=== PATIENT | female | born 2000 | race Two or more races ===

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

== ENCOUNTER 2021-02-17 02:21 | Emergency (ER) | payer MEDICAID ==
[~2021-02-17] VITALS: Ht 170.2 cm; Wt 80.7 kg
[2021-02-17 04:09] LABS: Urine Bacteria NONE SEEN /hpf (None Seen); Urine Blood Negative /uL (Negative); Urine Mucus FEW (None Seen); Urine WBC 12 /hpf (0 - 5)
[2021-02-17 05:48] LABS: Basophils # (auto) 0 10 ^3/uL (0-0.2); Basophils % (auto) 0.2 % (0.0-2.0); Eosinophils # (auto) 0.2 10 ^3/uL (0-0.8); Eosinophils % (auto) 1.3 % (0.0-7.0); Hematocrit 37.3 % (36.0-46.0); Hemoglobin 13.3 g/dL (12.2-16.2); Lymphocytes # (auto) 2.5 10 ^3/uL (0.4-5.4); Lymphocytes % (auto) 19.6 % (10.0-50.0); Mean Corpuscular Hgb Conc. 35.6 g/dL (32.0-36.0); Mean Corpuscular Volume 89.8 fL (80.0-100.0); Monocytes # (auto) 0.6 10 ^3/uL (0-1.3); Monocytes % (auto) 5.1 % (0.0-12.0); Neutrophils # (auto) 9.3 10 ^3/uL (1.6-8.6); Neutrophils % (auto) 73.8 % (37.0-80.0); Nucleated Red Blood Cells % 0.1 %; Red Blood Cells 4.15 10^6/uL (4.0-5.20); Red Cell Distribution Width 12.9 % (11.8-14.3); White Blood Cell 12.7 10^3/uL (4.4-10.8)
[2021-02-17 05:57] LABS: INR 1.02 (0.9-1.15)
[2021-02-17 06:38] LABS: Albumin 3.7 g/dL (3.4-5.0); BUN/Creatinine Ratio 11.8; Calcium 8.6 mg/dL (8.5-10.1); Potassium 3.6 mmol/L (3.5-5.1)
[2021-02-17 06:44] LABS: Bilirubin, Total 0.4 mg/dL (0.2-1.0)
[2021-02-17 06:48] VITALS: BP 124/77
== END 2021-02-17 07:35 | disposition home or self-care (01) ==
LOC: ER 02:22
DX: O20.0 Threatened abortion (principal); O23.41 Unspecified infection of urinary tract in pregnancy, first trimester; Z3A.12 12 weeks gestation of pregnancy
CPT/HCPCS: 36415; 76801; 80053; 81001; 84702; 85025; 85610

== ENCOUNTER 2021-07-09 20:06 | Observation (INO) | payer MEDICAID ==
[2021-07-09] MEDS ORDERED: PREN-96 OR (21:16)
== END 2021-07-09 21:37 | disposition home or self-care (01) ==
LOC: LDRP 20:06
PROVIDERS: ADMIT Obstetrics & Gynecology; ATTEND Obstetrics & Gynecology
DX: O42.913 Preterm premature rupture of membranes, unspecified as to length of time between rupture and onset of labor, third trimester (principal); O62.9 Abnormality of forces of labor, unspecified; W19.XXXA Unspecified fall, initial encounter; Z3A.32 32 weeks gestation of pregnancy; Y92.89 Other specified places as the place of occurrence of the external cause; Y93.89 Activity, other specified; Y99.8 Other external cause status
CPT/HCPCS: 59025; 81002; 94760; G0378; G0379

== ENCOUNTER 2021-07-10 05:34 | Inpatient (IN) | payer MEDICAID ==
[~2021-07-10] VITALS: Ht 170.2 cm; Wt 88.5 kg
[~2021-07-10 05:34] MED LIST: PREN-96 OR
[2021-07-10] MEDS ORDERED: BETAMETHASONE ACET (30mg/5ml) 5ml Vial 6mg/ml IM ONE (05:45)
[2021-07-10] MEDS ORDERED: AMPICILLIN SOD 2GM INJ 2 GM in SODIUM CHL 0.9% 100 ML IV ONE (05:45)
[2021-07-10] MEDS ORDERED: LACTATED RINGER'S 1,000 ML IV SCH ×2 (05:45→07:45)
[2021-07-10] MEDS ORDERED: MAGNESIUM SULFATE 100 ML IV ONE ×2 (06:00→06:12)
[2021-07-10] MEDS ORDERED: MAGNESIUM SULFATE 40MG/ML 1,000 ML IV SCH (06:00)
[2021-07-10] MEDS ORDERED: AMPICILLIN SOD 1 GM VL ONE (06:03)
[2021-07-10] MEDS ORDERED: BETAMETHASONE ACET (30mg/5ml) 5ml Vial 6mg/ml ONE (06:03)
[2021-07-10] MEDS ORDERED: MAGNESIUM SULFATE 40MG/ML 1,000 ML IV ONE (06:12)
[2021-07-10] MEDS ORDERED: TERBUTALINE SULFATE 1 MG/ML 1ML VIAL SC ONE (06:22)
[2021-07-10] MEDS: TERBUTALINE SULFATE 1 MG/ML 1ML VIAL SC SCH ×2 (06:29→08:02)
[2021-07-10 06:31] LABS: Basophils # (auto) 0 10 ^3/uL (0-0.2); Basophils % (auto) 0.1 % (0.0-2.0); Eosinophils # (auto) 0.1 10 ^3/uL (0-0.8); Eosinophils % (auto) 0.6 % (0.0-7.0); Hematocrit 35.2 % (36.0-46.0); Hemoglobin 11.9 g/dL (12.2-16.2); Lymphocytes # (auto) 1.7 10 ^3/uL (0.4-5.4); Lymphocytes % (auto) 12.2 % (10.0-50.0); Mean Corpuscular Hemoglobin 30.4 pg (28.0-32.0); Mean Corpuscular Hgb Conc. 33.7 g/dL (32.0-36.0); Mean Corpuscular Volume 90.3 fL (80.0-100.0); Monocytes # (auto) 1.2 10 ^3/uL (0-1.3); Monocytes % (auto) 8.9 % (0.0-12.0); Neutrophils # (auto) 10.6 10 ^3/uL (1.6-8.6); Neutrophils % (auto) 78.2 % (37.0-80.0); Red Cell Distribution Width 12.8 % (11.8-14.3); White Blood Cell 13.6 10^3/uL (4.4-10.8)
[2021-07-10 06:49] LABS: Albumin 2.9 g/dL (3.4-5.0); Calcium 8.5 mg/dL (8.5-10.1); Potassium 3.7 mmol/L (3.5-5.1)
[2021-07-10 06:53] LABS: BUN/Creatinine Ratio 13.6; Bilirubin, Total 0.6 mg/dL (0.2-1.0); INR 0.95 (0.9-1.15); Partial Thromboplastin Time 26.6 sec (23.6-33.0)
[2021-07-10 08:36] LABS: Alcohol, Urine < 3.0 mg/dL (0-10); Amphetamine Screen, Urine NEGATIVE (NEGATIVE); Barbiturate Scree,Urine NEGATIVE (NEGATIVE); Benzodiazephine Screen, Urine NEGATIVE (NEGATIVE); Cannabinoid Screen, Urine NEGATIVE (NEGATIVE); Cocaine Screen, Urine NEGATIVE (NEGATIVE); Opiate Scree,Urine NEGATIVE (NEGATIVE); Phencyclidine Screen, Urine NEGATIVE (NEGATIVE)
[2021-07-11 08:06] LABS: RPR Non Reactive (Non Reactive)
== END 2021-07-10 08:20 | disposition short-term general hospital (02) | DRG 566 ==
LOC: LDRP 05:34 → OBSVTOIN 05:37
PROVIDERS: ADMIT Obstetrics & Gynecology; ATTEND Obstetrics & Gynecology
DX: O42.913 Preterm premature rupture of membranes, unspecified as to length of time between rupture and onset of labor, third trimester (principal); Z20.822 Contact with and (suspected) exposure to COVID-19; Z3A.34 34 weeks gestation of pregnancy
CPT/HCPCS: 36415; 59025; 76805; 80053; 80307; 84112; 85025; 85610; 85730; 86592; 87426; 94760; 96360; 96361; 96365; 96366; 96372; 96374; G0378

== ENCOUNTER 2022-01-15 00:58 | Emergency (ER) | payer MEDICAID ==
[~2022-01-15] VITALS: Ht 170.2 cm; Wt 74.8 kg
[2022-01-15 00:58] VITALS: BP 140/92
[2022-01-15] MEDS ORDERED: TETANUS-DIPTH-ACEL PERTUSSIS 0.5ML SYR Tdap IM ONE (04:30)
[2022-01-15] MEDS ORDERED: LIDOCAINE W/ EPINEPHRINE 2% INJ 20ML VIAL IJ ONE (04:30)
[2022-01-15] MEDS ORDERED: BACITRACIN TOP OINT 1 UD PKG TOP ONE (05:45)
== END 2022-01-15 05:55 | disposition home or self-care (01) ==
LOC: ER 00:58
DX: S61.512A Laceration without foreign body of left wrist, initial encounter (principal); S60.222A Contusion of left hand, initial encounter; Z79.899 Other long term (current) drug therapy; W25.XXXA Contact with sharp glass, initial encounter; Y93.89 Activity, other specified; Y92.89 Other specified places as the place of occurrence of the external cause; Y99.8 Other external cause status
CPT/HCPCS: 12002; 73100; 90471; 90715

== ENCOUNTER 2022-10-08 23:09 | Emergency (ER) | payer MEDICAID ==
[~2022-10-08] VITALS: Ht 170.2 cm; Wt 72.9 kg
[2022-10-09] MEDS ORDERED: HYDROcodone-ACET 5/325MG TAB PO ONE (04:00)
[2022-10-09 04:27] VITALS: BP 110/60
[2022-10-09] MEDS ORDERED: HYDR-4902 PO (05:05)
== END 2022-10-09 05:30 | disposition home or self-care (01) ==
LOC: ER 23:09
DX: S01.81XA Laceration without foreign body of other part of head, initial encounter (principal); Z79.899 Other long term (current) drug therapy; W18.39XA Other fall on same level, initial encounter; Y93.89 Activity, other specified; Y92.89 Other specified places as the place of occurrence of the external cause; Y99.8 Other external cause status
CPT/HCPCS: 12011; 70450